=== PATIENT | female | born 1985 | race Caucasian/White ===

== ENCOUNTER 2017-02-27 11:33 | Emergency (ER) | payer OTHER ==
[2017-02-27 12:31] LABS: BASOPHIL % 0.2 % (0-2); PLATELET COUNT 386 x10^3mcL (130-400)
[2017-02-27 12:34] LABS: RED CELL DISTRIBUTION WIDTH 16.7 % (11.5-14.5)
[2017-02-27 12:44] LABS: CALCIUM 8.6 mg/dL (8.5-10.1); CHLORIDE SERUM 104 mmol/L (98-107); CREATININE SERUM 0.8 mg/dL (0.6-1.0); GFR1 > 60 mL/min; GLUCOSE SERUM 93 mg/dL (74-106); POTASSIUM SERUM 3.8 mmol/L (3.5-5.1); SODIUM SERUM 139 mmol/L (136-145)
[2017-02-27 12:48] LABS: ALBUMIN 3.5 g/dL (3.4-5.0); ALKALINE PHOSPHATASE 103 U/L (46-116); ALT/SGPT 25 U/L (14-59); AST/SGOT 21 U/L (15-37); BILIRUBIN TOTAL 0.53 mg/dL (0.20-1.00); LIPASE 142 IU/L (73-393)
[2017-02-27 12:49] LABS: TOTAL PROTEIN, SERUM 8.3 g/dL (6.4-8.2)
[2017-02-27 14:04] VITALS: BP 116/64
== END 2017-02-27 14:09 | disposition home or self-care (01) ==
LOC: ED 11:33
PROVIDERS: Emergency Medicine
DX: R10.12 Left upper quadrant pain (principal); N39.0 Urinary tract infection, site not specified; R19.7 Diarrhea, unspecified
CPT/HCPCS: 36415